=== PATIENT | female | born 1990 | race Caucasian/White ===

== ENCOUNTER → 2022-01-12 07:47 | Outpatient (CLI) | payer OTHER, SELFPAY ==
--- NOTE | ~2022-01-12 | MR_ITS ---
EXAMINATION: MR brain IAC wo/w con DATE: 01/12/2022 08:54 INDICATION: Sensorineural hearing loss, right ear. TECHNIQUE: Magnetic resonance imaging (MRI) of the brain, brainstem, and internal auditory canals was performed without and with 14 mL MultiHance intravenous contrast. Sequences included sagittal and ax ial T1-weighted FSE, axial diffusion-weighted FS EPI, axial T2*-weighted GRE, axial T2-weighted FLAIR Propeller, axial T2-weighted Propeller, small etayo-fz-xajs coronal FIESTA, small vfwce-vm-zfkx kristin nal T1-weighted FSE, and small jhlpp-fz-hqlq axial T1-weighted SPGR. Postcontrast sequences included axial T1-weighted FSE, small miomh-pd-ofnr coronal T1-weighted FSE, and small tmdrj-wk-okph axial T1- weighted SPGR. Apparent diffusion coefficient (ADC) maps were created. COMPARISON: None. FINDINGS: There is no intracranial hemorrhage, acute infarction, or abnormal intracranial mass lesion . The ventricles are normal in size. There is mild mucosal thickening in the ethmoid sinuses. The orb its are normal. There is a trace right mastoid effusion. The internal auditory canals and inner and m iddle ears are normal. IMPRESSION: 1. Normal brain. Reviewed, dictated and finalized at location A. RANCE COORDINATOR IMPRESSION: 1. Normal brain.
[2022-01-12 08:13] LABS: Estimated Glomerular Filt Rate > 60
== END ==
PROVIDERS: Visit Provider Otolaryngology
DX: H90.41 Sensorineural hearing loss, unilateral, right ear, with unrestricted hearing on the contralateral side (principal)
CPT/HCPCS: 70553; A9577

== ENCOUNTER 2022-05-30 16:03 | Outpatient (CLI) | payer OTHER, SELFPAY ==
--- NOTE | ~2022-05-30 | MR_ITS ---
EXAMINATION: MR IAC wo/w con DATE: 05/30/2022 17:30 INDICATION: Sensorineural hearing loss with one year of fuzzy hearing from the right ear. TECHNIQUE: Magnetic resonance imaging (MRI) of the brain and brainstem was performed without and with 15 mL Multihance intravenous contrast. Sequences included sagittal and axial T1-weighted FSE, axial diffusion-weighted FS EPI, axial T2*-weighted GRE, axial T2-weighted FLAIR Propeller, axial T2-weight ed Propeller, small dvklq-vk-lxlg coronal FIESTA, small jdmlx-ec-ecrk coronal T1-weighted FSE, and sm all rgpwh-jl-vqxv axial T1-weighted SPGR. Postcontrast sequences included axial T1-weighted FSE, smal l ohtbx-yz-wijv coronal T1-weighted FSE, and small grqtx-kh-fhig axial T1-weighted SPGR. Apparent dif fusion coefficient (ADC) maps were created. COMPARISON: 01/12/2022 FINDINGS: There are no areas of restricted diffusion to suggest acute infarction. No intracranial hemorrhage or abnormal intracranial mass lesion. There are no intraparenchymal signal abnormalities seen on the o ther pulse sequences. The ventricles are symmetric and normal in size. There are no abnormal extra-ax ial fluid collections. Flow voids are seen in the cerebral arteries on the T2-weighted sequences cons istent with their expected patency. The internal auditory canal is normal with normal seventh/eighth cranial nerve complexes. No cerebellopontine angles masses. Unchanged trace right mastoid effusion. B ilateral middle and inner ear cavities are unremarkable. Mild mucoperiosteal thickening at the bilate ral ethmoid sinuses. Visualized orbits and soft tissues are unremarkable. There are no areas of abnor mal enhancement on the post contrast images. IMPRESSION: 1. Normal brain. Reviewed, dictated and finalized at location A. IMPRESSION: 1. Normal brain.
--- NOTE | ~2022-05-30 | CT_ITS ---
EXAMINATION: CT sinus wo con DATE: 05/30/2022 17:36 INDICATION: Sinusitis. TECHNIQUE: Computed tomography (CT) of the paranasal sinuses was performed without intravenous contra st. The dose-length product was 345.16 mGy-cm. Automated exposure control and iterative reconstructio n technique were employed. COMPARISON: None FINDINGS: There is minimal mucosal thickening of the left maxillary antrum. No air-fluid levels. No m ucoperiosteal reaction. Leftward nasal septal deviation. Ostiomeatal units are patent bilaterally. Ma stoids are pneumatized. IMPRESSION: 1. Mild left maxillary sinus disease. Reviewed, dictated and finalized at location A.
[2022-05-30 16:54] LABS: Estimated Glomerular Filt Rate > 60
== END 2022-05-30 16:04 | disposition home or self-care (01) ==
DX: H90.41 Sensorineural hearing loss, unilateral, right ear, with unrestricted hearing on the contralateral side (principal); J32.0 Chronic maxillary sinusitis
CPT/HCPCS: 70486; 70553; A9577

== ENCOUNTER → 2022-12-25 11:17 | Outpatient (CLI) | payer OTHER, SELFPAY ==
--- NOTE | ~2022-12-25 | US_ITS ---
Pelvic ultrasound. Clinical History: First trimester , vaginal bleeding Technique: Realtime transabdominal and transvaginal scanning of the pelvis was performed. Color flow Doppler and Doppler spectral analysis were performed. Findings: The uterus is anteverted, and contains an intrauterine gestation. Lupus-rump length of 3 cm corresponds to an estimated gestational age of 9 weeks 6 days. heart rate is 180 bpm. Exophytic right-sided fibroid measures 5.5 x 5.1 x 3.7 cm, versus prominent right ovary. There is vas cular flow within this structure on color imaging. The left ovary measures 2.8 x 2.4 x 2.5 cm. No significant left ovarian or adnexal mass is seen. There is no evidence of free fluid in the cul de sac. Impression: Live intrauterine gestation with estimated gestational age of 9 weeks 6 days. heart rate is 188 bpm. Possible 5.5 cm exophytic right-sided fibroid versus prominent right ovary. Reviewed, dictated and finalized at location . BI DEVELOPER Impression: Live intrauterine gestation with estimated gestational age of 9 weeks 6 days. F etal heart rate is 188 bpm. Possible 5.5 cm exophytic right-sided fibroid versus prominent right ovary.
== END ==
PROVIDERS: PCP Obstetrics & Gynecology Gynecology; Visit Provider Obstetrics & Gynecology Gynecology
DX: O26.851 Spotting complicating pregnancy, first trimester (principal); Z3A.09 9 weeks gestation of pregnancy
CPT/HCPCS: 76801

== ENCOUNTER 2023-07-13 12:49 | Outpatient (RCR) | payer OTHER, SELFPAY ==
[2023-07-13 13:03] VITALS: BP 120/66; PULSE 85
[2023-07-13 13:34] VITALS: BP 120/66; PULSE 80
== END 2023-09-20 10:47 | disposition home or self-care (01) ==
LOC: ANHOBOP 12:49
PROVIDERS: PCP Obstetrics & Gynecology Gynecology; Visit Provider Obstetrics & Gynecology Gynecology
DX: O24.419 Gestational diabetes mellitus in pregnancy, unspecified control (principal); Z3A.38 38 weeks gestation of pregnancy
CPT/HCPCS: 59025

== ENCOUNTER 2023-07-20 04:49 | Inpatient (IN) | payer OTHER, SELFPAY ==
[2023-07-20] VITALS (77 sets, daily range): BP systolic 94–136; BP diastolic 43–81; PULSE 61–120; RESP 18; TEMP 36.3–36.8; O2SAT 96–100; BMI 33.7
[2023-07-20] MEDS: OXYTOCIN 30 UNITS/NS 500 ML 30 UNITS/500 ML BAG 999 UNITS IV CONT (05:59)
[2023-07-20] MEDS: LACTATED RINGERS 1,000 ML 125 ML IV CONT ×2 (06:00→07:10)
[2023-07-20] MEDS: OXYTOCIN 30 UNITS/NS 500 ML 30 UNITS/500 ML BAG IV CONT (06:00)
--- NOTE | 2023-07-20 06:14 | LDADM ---
This patient, Lori Cleaning, was admitted to Labor/Delivery/Recovery 104 on 07/20/23 at 04:49. Plans for labor, pain management and were discussed with patient. Patient/family oriented to hospital policies and general routines including ID bracelet, bed and alarms, visiting hours, pain management, procedures, bathroom and other care routines, personal items, smoking policy, room service/diet and guest tray routines, infant security routines, and visiting hours. Patient/Family are encouraged to report perceived risks to care and to ask questions if they do not understand what they are told or what they should do. See OBIX for further documentation.
[2023-07-20 06:22] LABS: Basophils Absolute Auto 0.1 K/mm3 (0.0-0.1); Basophils Percent Auto 0.5 % (0.2-1.2); Eosinophils Absolute Auto 0.1 K/mm3 (0-0.3); Eosinophils Percent Auto 0.8 % (0-4.4); Hemoglobin 13.5 g/dL (12.0-15.0); Immature Granulocyte Absolute 0.09 K/mm3 (0.00-0.031); Immature Granulocyte Percent A 0.8 % (0-0.5); Lymphocytes Absolute Auto 2.06 K/mm3 (0.9-3.2); Lymphocytes Percent Auto 19.4 % (18.3-44.2); Mean Corpuscular HGB Conc 34.6 g/dl (32-36); Mean Corpuscular Hemoglobin 32.6 pg (26-34); Mean Corpuscular Volume 94.2 fl (80-100); Mean Platelet Volume 10.6 fl (7.4-10.4); Monocytes Absolute Auto 0.9 K/mm3 (0.1-0.6); Neutrophils Absolute Auto 7.5 K/mm3 (1.3-6.7); Neutrophils Percent Auto 70.5 % (45.5-73.1); Platelet Count Result 167 k/mm3 (150-375); Red Blood Count 4.14 M/mm3 (4.2-5.4); Red Cell Distribution Width 14.2 % (11.5-14.5); White Blood Count 10.6 K/mm3 (4.5-10.0)
--- NOTE | 2023-07-20 06:32 | WPDANESEPP ---
Anes - Eval Pre Procedure Procedure: labor epidural Date/Time: 07/20/23 06:32 Pre Op Diagnosis: IOL Patient Data Age: 32 Gender: F Height: Weight: Last Vital Signs Pulse 73 07/20/23 06:31 BP 115/54 L 07/20/23 06:31 Pulse Ox 97 07/20/23 05:31 O2 Del Method Room Air 07/19/23 08:30 Allergies Allergy/AdvReac Type Severity Reaction Status Date / Time amoxicillin Allergy Unknown Skin Verified 06/30/23 12:28 Reaction Home Medications Medication Instructions Recorded Confirmed Type aspirin 81 mg chewable tablet 81 mg PO DAILY 06/14/23 06/30/23 History cholecalciferol (vitamin D3) 25 25 mcg PO DAILY 06/14/23 06/30/23 History mcg (1,000 unit) capsule vitamin-ferrous fumarate 1 tablet PO DAILY 06/14/23 06/30/23 History 28 mg iron-folic acid 800 mcg tablet ( Vitamins with Minerals) insulin NPH isoph U-100 human 100 40 unit subcut HS 07/20/23 07/20/23 History unit/mL subcutaneous suspension (Humulin N NPH U-100 Insulin (isophane susp)) Laboratory Tests 07/20/23 05:52 WBC 10.6 H K/mm3 (4.5-10.0) RBC 4.14 L M/mm3 (4.2-5.4) Hgb 13.5 g/dL (12.0-15.0) Hct 39.0 % (37.0-47.0) MCV 94.2 fl (80-100) MCH 32.6 pg (26-34) MCHC 34.6 g/dl (32-36) RDW 14.2 % (11.5-14.5) Plt Count 167 k/mm3 (150-375) MPV 10.6 H fl (7.4-10.4) Immature Gran % (Auto) 0.8 H % (0-0.5) Neut % (Auto) 70.5 % (45.5-73.1) Lymph % (Auto) 19.4 % (18.3-44.2) [place] % (Auto) 8.0 % (2.6-8.5) Eos % (Auto) 0.8 % (0-4.4) Baso % (Auto) 0.5 % (0.2-1.2) Lymph # (Auto) 2.06 K/mm3 (0.9-3.2) [place] # (Auto) 0.9 H K/mm3 (0.1-0.6) Eos # (Auto) 0.1 K/mm3 (0-0.3) Baso # (Auto) 0.1 K/mm3 (0.0-0.1) Abs Immat Gran (auto) 0.09 H K/mm3 (0.00-0.031) Absolute Neuts (auto) 7.5 H K/mm3 (1.3-6.7) Absolute Nucleated RBC 0.0 K/mm3 (0.0-0.012) Nucleated RBC % 0.0 % (0.0-0.2) RPR Pending Patient hx anesthesia problems: none Family hx anesthesia problems: none Results Review: All pre-operative results and documents have been reviewed as part of the pre-operative evaluation. [facility] Past Medical History Medical History (Updated 07/20/23 @ 06:33 by Ana Russell CRNA) Cough Decreased hearing of right ear GDM (gestational diabetes mellitus), class A1 on insulin Mild persistent reactive airway disease without complication Family History Family History Grandparent Diabetes mellitus Family history of malignant neoplasm of breast Father Hypertension Sibling Hypertension Social History Social History Social History: Caffeine-none Smoking status: Never smoker Alcohol intake: never Substance use: never Substance use type: does not use Lack of Transportation: No Lack of Food: Never True Current Housing: I Have Housing Concerned About Future Housing: No Difficulty Paying Gas/Electric Bills: No Difficulty Paying for Meds: No Currently Unemployed: No Education: Bachelor's Degree Difficulty w/ Childcare or Family Care: No Living arrangements: with family Spiritual care concerns: No Exam Day of Procedure 07/20/23 06:32
[2023-07-20 06:40] LABS: Glucose Point of Care 101 mg/dl (65-105)
--- NOTE | 2023-07-20 07:48 | WPDOBADMIT ---
Obstetrics - Admit Note Admission Note: record reviewed. No pertinent additions to the history and/or any subsequent changes in the physical findings that are not consistent with the expected course of the were found. Additions to the history and/or subsequent changes in the physical findings follow. None.
--- NOTE | 2023-07-20 07:57 | PM.OBPNLAB ---
Pain Control Date/time seen: 07/20/23 07:54 Pain control: epidural Pelvic Exam Dilation (cm): 4 (4.5) Effacement (%): 80 station: -2 Amniotic membrane status: Intact Comments: head well applied to cervix. Contractions Monitor mode: External Contraction frequency: 3 (2-4) Contraction duration: 60 Contraction pattern: Regular Contraction phase: Contraction Contraction intensity: Moderate Status status: Category l Comments: Baseline 140. +accels. Assessment and Plan Assessment: induction ongoing Comments: CNM to bedside. Discussed plan of care an option for amniotomy. Discussed risks, benefits, and expectations of breaking water. Patient is agreeable. Amniotomy performed and there was a large return of clear amniotic fluid. Patient tolerated procedure well. Last blood glucose 101. Plan for repeat SVE in about 2 hours. RN to check glucose at that time. Anticipate vaginal . Dr. Arrington updated.
[2023-07-20 08:59] LABS: Glucose Point of Care 86 mg/dl (65-105)
[2023-07-20] MEDS: OXYTOCIN 30 UNITS/NS 500 ML 30 UNITS/500 ML BAG 125 UNITS IV CONT (10:30)
--- NOTE | 2023-07-20 10:40 | P.PCNOB_ITS ---
OB - Delivery Note Procedure Delivery date: 07/20/23 Procedure: Events: Gestational Diabetes (GDMA2) Induction method: Per Pitocin Protocol Delivery augmentation: Rupture of Membranes Delivery monitor: External FHT and External Uterine Route of delivery: Episiotomy description: None Laceration Description: Periurethral (hemostatic/superificial), Vaginal (2nd degree which extended to a 1cm R lower labial/perineal first degree lac. ) and Cervical (laceration noted at the 8 o'clock location on the cervix and extended 4cm) Delivery repair: vicryl Specimen: Yes (placenta) Quantitative Blood Loss (ml): 350 Anesthesia type: Epidural Disposition: Floor Narrative: Patient arrived for induction of labor at 39 weeks secondary to gestational diabetes, well managed on insulin. She received an epidural for pain control after Pitocin was started. Membranes were then ruptured and she quickly progressed to complete dilation. She pushed with contractions and quickly brought the head to a full crown. With the next push, she delivered the remainder of the head. There is varus Duchenne and she easily delivered the anterior and posterior shoulder as as well as the remainder of the infant. The infant was placed on the maternal abdomen in care transferred to the nursery staff. After 1 minute of life, the cord was doubly clamped and cut. Cord blood, cord gases, and cord segment were obtained. The placenta delivered spontaneously in the Schultze presentation. the vaginal laceration was repaired in the usual fashion. Vaginal bleeding continued to be moderate. The vaginal cavity and cervix were inspected and a 4 cm long the cervical laceration was noted at the 8 o'clock position on the cervix. Dr. Arrington was called by staff for assessment. Several minutes later, CNM spoke with MD on telephone. At this point, the cervical laceration was not actively bleeding. No need to refer repair per MD. Uterine tone remained firm throughout. There was excellent hemostasis. All delivery counts correct. [place] [facility] Date of : 07/20/23 Time of : 09:55 Weeks of gestation at delivery: 39 gender: Male Weight (pounds): 8 Weight (ounces): 11 presentation: vertex position: Left Occiput Anterior Placenta delivery description: Spontaneous and Normal Configuration Cord Vessel Description: 3 Vessels, Delayed Cord Clamping and Around Extremity (right arm) Narrative: scores not available at the time of this note.
[2023-07-20 12:48] LABS: Rapid Plasma Reagin Non-Reactive (NonReactive)
[2023-07-20] MEDS: WITCH HAZEL 40 PADS 1 PAD TOPICAL (12:52)
[2023-07-20] MEDS: BENZOCAINE 20% AER SPR (*SP) 56 GM CAN 1 SPRAY TOPICAL (12:53)
--- NOTE | 2023-07-20 14:25 | OBPPTRN ---
Patient transferred to post room # 282 via wheelchair. Support person present. Oriented to unit, room, information board, rooming in, admission packet and security measures. Patient verbalizes understanding.
[2023-07-20] MEDS: IBUPROFEN 600 MG TABLET PO (15:24)
[2023-07-21 04:00] VITALS: BP 114/77; PULSE 90; RESP 18; TEMP 36.7; O2SAT 100
[2023-07-21 05:21] LABS: Hematocrit 34.1 % (37.0-47.0); Hemoglobin 11.7 g/dL (12.0-15.0)
--- NOTE | 2023-07-21 07:45 | WPDANLDPN2 ---
Anes-Prog Note L&D Date/Time: 07/21/23 07:45 Comfortable throughout: labor and delivery Neuraxial method: epidural Epidural/Spinal procedure site: clean & non-tender Neuro status: Neuro function grossly intact. Cardiovascular status: normal Respiratory status: normal Airway patency: baseline Mental status: baseline Post-Op hydration status: normal Vital Signs: Last Vital Signs Temp 36.7 C 07/21/23 04:00 Pulse 90 07/21/23 04:00 Resp 18 07/21/23 04:00 BP 114/77 07/21/23 04:00 Pulse Ox 100 07/21/23 04:00 O2 Del Method Room Air 07/20/23 20:00 Pain score (VAS): 0 I/O: Intake & Output 07/20/23 07/20/23 07/21/23 15:59 23:59 07:59 Intake Total 500 250 Output Total 350 Balance 150 250 Post-procedural complaints: none Patient feedback: Patient satisfied with anesthetic care.
[2023-07-21] MEDS: DOCUSATE SODIUM 100 MG CAPSULE PO ×2 (08:59→17:57)
[2023-07-21] MEDS: MULTIVIT/MIN/PREN/FOL AC/IRON TABLET 1 TAB PO (08:59)
[2023-07-21] MEDS: IBUPROFEN 600 MG TABLET PO ×2 (08:59→18:01)
[2023-07-21 09:00] VITALS: BP 110/72; PULSE 88; RESP 18; TEMP 36.6; O2SAT 100
[2023-07-21] MEDS: CHOLECALCIFEROL 1,000 UNITS TABLET 1000 UNITS PO (09:00)
--- NOTE | 2023-07-21 09:00 | PC.NURSE ---
PT introductions made and plan of care discussed per post , pain management, breast feeding, daily care activities. PT and spouse both recipients of such instructions and no barriers to learning identified at this time. PT received such instructions per one to one discussion, mom baby care guide and demonstrations this shift. PT verbalized understanding of such care
[2023-07-21 20:00] VITALS: BP 106/74; PULSE 59; RESP 16; TEMP 36.8; O2SAT 97
--- NOTE | 2023-07-22 07:20 | PC.NURSE ---
PT introductions made and plan of care discussed per post , pain management, breast feeding, daily care activities and pending discharge to home. PT and spouse both recipients of such instructions and no barriers to learning identified at this time. PT received such instructions per one to one discussion, mom baby care guide and demonstrations this shift. PT verbalized understanding of such care
[2023-07-22 09:00] VITALS: BP 109/72; PULSE 91; RESP 16; TEMP 36.9; O2SAT 98
--- NOTE | 2023-07-22 09:58 | PM.OBDSVD ---
DS: Admitting Diagnosis Discharge Date 07/22/2023 Admitting Diagnosis DS: Discharge Diagnosis Discharge Diagnosis (1) , delivered: Code(s): O80 - Encounter for full-term uncomplicated delivery Status: Acute OB - DS: Summary OB Procedures : None OB Procedures Intrapartum: Spontaneous Vag Delivery OB Procedures: : None Time Spent with Patient Time attestation: Total time spent providing and/or coordinating discharge services: DS: Data Data Completed and Pending Pending studies at discharge: Pending at discharge 07/20/23 10:01 Surgical [PTH] Routine Discharge Plan Discharge Discharging Clinician: Jacobo Arrington Patient Disposition: Home, Self-Care Activity: as tolerated Diet: as tolerated Patient Instructions: Antibiotic Form Stand Alone Forms: General Discharge Information Follow-up/Referrals: Blanceh Torrez MD [Primary Care Provider] - 3 Weeks Discharge Medications: New ibuprofen 600 mg Tablet 600 mg PO Q6H PRN (Reason: Cramping) Qty: 30 0RF Continued vit-iron fum-folic ac [ Vitamin with Minerals] 28 mg iron- 800 mcg tablet 1 tablet PO DAILY cholecalciferol (vitamin D3) 25 mcg (1,000 unit) capsule 25 mcg PO DAILY Discontinued aspirin 81 mg tablet,chewable 81 mg PO DAILY Humulin N NPH U-100 Insulin 100 unit/mL suspension 40 unit SUBCUT HS Date of admission: 07/20/23 04:49 Primary Care Provider: Blanche Torrez Admitting Provider: Blanche Torrez Attending physician on admission: Blanche Torrez Condition: Stable
[2023-07-22] MEDS: MULTIVIT/MIN/PREN/FOL AC/IRON TABLET 1 TAB PO (11:55)
[2023-07-22] MEDS: CHOLECALCIFEROL 1,000 UNITS TABLET 1000 UNITS PO (11:55)
[2023-07-22] MEDS: DOCUSATE SODIUM 100 MG CAPSULE PO (11:55)
--- NOTE | 2023-07-22 12:00 | PC.NURSE ---
PT received discharge instructions per protocol and verbalized understanding of such care. Discharge video not available at this time.
--- NOTE | 2023-07-22 12:25 | PC.NURSE ---
Pt discharged to home ambulatory accompanied by spouse and and taken to waiting car. Follow up appts confirmed
[2023-07-24 11:26] VITALS: BP 115/63; PULSE 75; RESP 18; TEMP 36.6; O2SAT 100
== END 2023-07-22 12:25 | disposition home or self-care (01) | DRG 806 ==
LOC: ANHOB2 07-22 10:43 → ANHLDR 07-24 10:34 → ANHOB2 07-24 10:34
PROVIDERS: Advanced Practice Midwife; Admitting Provider Obstetrics & Gynecology; PCP Obstetrics & Gynecology Gynecology; Visit Provider Obstetrics & Gynecology
DX: O24.424 Gestational diabetes mellitus in childbirth, insulin controlled (principal); O71.3 Obstetric laceration of cervix; Z37.0 Single live birth; O71.82 Other specified trauma to perineum and vulva; O62.3 Precipitate labor; O69.82X0 Labor and delivery complicated by other cord entanglement, without compression, not applicable or unspecified; O70.0 First degree perineal laceration during delivery; Z3A.39 39 weeks gestation of pregnancy
CPT/HCPCS: 36415; 82948; 85014; 85018; 85025; 86592; 86850; 86900; 86901; 88307; A9270; J2590; J2795; J7120